=== PATIENT | female | born 1950 | race Caucasian/White ===

== ENCOUNTER 2017-03-05 09:32 | Day surgery (SDC) | payer MEDICARE, OTHER ==
[2017-03-02 09:30] LABS: BASOPHILS 1.2 %; BASOPHILS ABSOLUTE 0.06 10/3/uL (0.0-0.16); EOSINOPHILS 5.6 %; EOSINOPHILS ABSOLUTE 0.28 10/3/uL (0.0-0.53); HEMATOCRIT 38.1 % (36.0-48.0); HEMOGLOBIN 12.8 g/dL (12.0-16.0); LYMPHOCYTES 30.9 %; LYMPHOCYTES ABSOLUTE 1.54 10/3/uL (0.67-4.30); MEAN CORPUS HGB CONC 33.6 g/dL (32.0-36.0); MEAN CORPUSCULAR HEMOGLOB 31.5 pg (26.0-34.0); MEAN CORPUSCULAR VOLUME 93.8 fL (80-100); MEAN PLATELET VOLUME 9.3 fL (9.2-13.0); MONOCYTES 12.2 %; MONOCYTES ABSOLUTE 0.61 10/3/uL (0.21-1.20); NEUTROPHILS 50.1 %; NEUTROPHILS ABSOLUTE 2.49 10/3/uL (2.02-8.40); PLATELET COUNT 219 10/3/uL (150-400); RBC DISTRIBUTION WIDTH 13.4 % (12.0-16.0); RED CELL COUNT 4.06 10/6/uL (4.0-5.6)
[2017-03-02 09:33] LABS: MANUAL DIFF NO %
[2017-03-02 09:51] LABS: BUN (BLOOD UREA NITROGEN) 14 MG/DL (6-23); CALCIUM, SERUM 9.4 MG/DL (8.5-10.4); CHLORIDE, SERUM 104 MMOL/L (96-112); CO2 (CARBON DIOXIDE) 32 MMOL/L (24-34); CREATININE 1.01 MG/DL (0.55-1.02); GFR AFRICAN AMERICAN 67 ML/MIN (>=60); GFR NON AFRICAN AMERICAN 58 ML/MIN (>=60); GLUCOSE, SERUM 99 MG/DL (60-99); POTASSIUM, SERUM 4.1 MMOL/L (3.5-5.3); SODIUM, SERUM 140 MMOL/L (135-148)
--- NOTE | ~2017-03-05 | OP ---
Record Of Operation [facility] [address] [place]. [address] NAME: KRISTINA BORJAS : 50 STATUS : [facility]#: [id number] AGE: 66 ADM/REG DATE : 03/05/17 MR#: [id number] REPORT SERV DATE: 03/05/17 DICTATED BY: DAMIR OLIVA DATE: 03/05/17 REPORT STATUS : Draft TRANSCRIBED BY: GABRIEL DATE: 03/05/17 DATE OF PROCEDURE: 03/05/2017 SERVICE: Otolaryngology. SURGEON: Damir Oliva MD. PREOPERATIVE DIAGNOSIS: Right true vocal cord paralysis. POSTOPERATIVE DIAGNOSIS: Right true vocal cord paralysis. PROCEDURE: Microsuspension laryngoscopy with injection medialization of the right true vocal cord. ANESTHESIA: General endotracheal anesthesia. COMPLICATIONS: None. SPECIMENS: None. FINDINGS: The patient had successful medialization of the right true vocal cord. STATEMENT OF MEDICAL NECESSITY: This is a 66-year-old female, who had a surgery in August. Since that time, she has been hoarse, difficulty swallowing. On exam in my office, she demonstrated a paralysis of the right true vocal cord. Unknown etiology. She did have multiple intubations during that time assuming an injury. STATEMENT OF OPERATION: The patient was brought to the operating room in supine position, transferred over to the operating room table. All pressure points were padded. General endotracheal anesthesia was established with a 6.0 tube. The patient was draped out for laryngoscopy. Bacitracin ointment was applied to the lips. A tooth-guard was placed for protection of the teeth. A Dedo laryngoscope was inserted down to the larynx, and the patient was suspended with full view of the larynx, and the true vocal cords. Then, using a 0 degree endoscope, Prolaryn gel was injected anteriorly in the middle portion of the cord, 0.7 mL of total was injected. Preoperative and postoperative photographs were taken to demonstrate the medialization of the cord. Epinephrine osiris was placed over the injection site, and the Dedo was then removed. The patient was turned over to Anesthesia, where she awoken, was extubated, and transferred to the PACU in stable condition. PS/GABRIEL Damir Oliva MD Record Of Operation [facility] [address] [place] [address] [place]. [address] NAME: KRISTINA BORJAS : 50 STATUS : [facility] PAT#: [id number] AGE: 66 ADM/REG DATE : 03/05/17 MR#: [id number] REPORT SERV DATE: 03/05/17 DICTATED BY: DAMIR OLIVA DATE: 03/05/17 REPORT STATUS : Draft TRANSCRIBED BY: GABRIEL DATE: 03/05/17 / [id number] CC: MD Vito Green M.D.
[~2017-03-05 09:32] MED LIST: ADVIL PO; BACTRONASA NAS; CRESTOR5 MG PO; DEXILANT PO; FLEX PO; INHALER INH; KAPIDEX30 MG PO; LORT7 PO; LORTAB PO; METHOC500B PO; MEVACOR PO; MULTIPLE VIT PO; NORCO1 TA1 PO; NORCO1 TAB PO; POTASSIUM95 MG PO; PRILOSEC40 MG PO; PRIN10 PO; PROAIR HFA INH; REQUIP5 PO; RESTORIL30 MG PO; SINGULAIR1 PO; ZYRTEC ALLGY10 MG PO; [UNRECOGNIZED DRUG - OTHER] PO
== END 2017-03-05 14:07 | disposition home or self-care (01) ==
LOC: SDC 09:32
PROVIDERS: Otolaryngology
PROC: 3E0F8GC Introduction of Other Therapeutic Substance into Respiratory Tract, Via Natural or Artificial Opening Endoscopic (ICD-10-PCS; principal; 2017-03-05 10:45)
DX: J38.01 Paralysis of vocal cords and larynx, unilateral (principal); I10 Essential (primary) hypertension; E78.00 Pure hypercholesterolemia, unspecified; J45.909 Unspecified asthma, uncomplicated; G47.33 Obstructive sleep apnea (adult) (pediatric); M19.90 Unspecified osteoarthritis, unspecified site; K21.9 Gastro-esophageal reflux disease without esophagitis; K44.9 Diaphragmatic hernia without obstruction or gangrene; Z99.89 Dependence on other enabling machines and devices; Z79.899 Other long term (current) drug therapy; Z98.41 Cataract extraction status, right eye; Z98.42 Cataract extraction status, left eye; Z96.1 Presence of intraocular lens; Z87.01 Personal history of pneumonia (recurrent); Z98.1 Arthrodesis status; Z87.81 Personal history of (healed) traumatic fracture; Z98.890 Other specified postprocedural states; Z90.49 Acquired absence of other specified parts of digestive tract; Z86.010 Personal history of colon polyps; Z90.710 Acquired absence of both cervix and uterus
CPT/HCPCS: 80048; 85025; 93005; A9270-GY; C1878; J0330; J2250; J2370; J2405; J3010